=== PATIENT | female | born 1975 | race Caucasian/White ===

== ENCOUNTER → 2017-02-01 | Outpatient (CLI) | payer OTHER ==
--- NOTE | 2017-02-01 15:50 | US ---
EXAMINATION TYPE: US thyroid st tissue head/neck DATE OF EXAM: 02/01/2017 COMPARISON: NONE CLINICAL HISTORY: E04.9 Goiter diffuse. Goiter GLAND SIZE: Right Lobe: 4.3 x 1.4 x 1.0 cm Overall Parenchyma: heterogenous Left Lobe: 4.8 x 1.2 x 1.4 cm Overall Parenchyma: heterogeneous Isthmus Thickness: 0.4 cm NODULES RIGHT: # of nodules measured on right: 0 LEFT: # of nodules measured on left: 0 ISTHMUS: # of nodules measured in the isthmus: 0 Bilateral neck scanned, no evidence of lymphadenopathy. Heterogeneous gland, no distinct thyroid nodule noted at this time IMPRESSION: Nonspecific glandular heterogeneity without distinct nodule.
== END | disposition home or self-care (01) ==
LOC: RADUSWWP 14:57
PROVIDERS: ATTEND Internal Medicine Endocrinology, Diabetes & Metabolism
DX: E04.9 Nontoxic goiter, unspecified (principal)
CPT/HCPCS: 76536